=== PATIENT | male | born 1975 | race African-American/Black ===

== ENCOUNTER 2023-03-28 15:56 | Emergency (ER) | payer BC ==
[~2023-03-28] VITALS: Ht 182.9 cm; Wt 98.0 kg
[2023-03-28] MEDS ORDERED: ONDANSETRON HCL 4MG/2ML INJ IV STA (16:12)
[2023-03-28] MEDS ORDERED: MORPHINE SULFATE 4 MG/ML CPJ (NOT FOR IM USE) IV STA (16:12)
[2023-03-28] MEDS ORDERED: SODIUM CHLORIDE 0.9% 1,000 ML IV ONE (16:15)
[2023-03-28] MEDS ORDERED: ETOMIDATE 2MG/ML 10ML VIAL IV ONE (16:15)
[2023-03-28] MEDS ORDERED: MORPHINE SULFATE 4 MG/ML CPJ (NOT FOR IM USE) IV ONE (16:15)
[2023-03-28 16:38] LABS: BASOPHILS % 0.6 % (0.0-2.0); EOSINOPHILS % 2.1 % (0.0-5.0); HEMATOCRIT. 39.4 % (42.0-52.0); HEMOGLOBIN. 13.4 g/dL (14.0-18.0); LYMPHOCYTES % 40.9 % (20.0-50.0); MEAN CORPUSCULAR HEMOGLOBIN 33.7 pg (28.0-32.0); MEAN CORPUSCULAR HGB CONC 33.9 g/dL (31.0-37.0); MEAN CORPUSCULAR VOLUME 99.6 fL (80.0-94.0); MEAN PLATELET VOLUME 8.3 fl (7.4-10.4); MONOCYTES % 11.2 % (2.0-8.0); NEUTROPHILS % 45.2 % (40.0-76.0); PLATELET 260 x1000/uL (130-400); RED BLOOD CELL COUNT 3.96 mill/uL (4.7-6.1); RED CELL DISTRIBUTION WIDTH 12.3 % (11.6-14.6); WHITE BLOOD COUNT 5.7 x1000/uL (4.5-11.0)
[2023-03-28 16:53] LABS: CHLORIDE 105 mEq/L (98-107); INDEX HEMOLYSI 1 (1-3); INDEX ICTERIC 1 (1-4); INDEX LIPEMIC 1 (1-3); POTASSIUM 3.5 mEq/L (3.5-5.1); SODIUM 140 mEq/L (136-145)
[2023-03-28 17:00] LABS: CALCIUM 8.6 mg/dL (8.5-10.1); CARBON DIOXIDE 29 mEq/L (21-32); CREATININE 0.9 mg/dL (0.6-1.3); GLUCOSE 104 mg/dL (70-105); PROTEIN TOTAL 7.6 g/dL (6.0-8.3); UREA NITROGEN BLOOD 14 mg/dL (7-21)
[2023-03-28 17:01] LABS: ALANINE AMINOTRANSFERASE 51 IU/L (13-61); ASPARTATE AMINOTRANSFERASE 25 IU/L (15-37); BILIRUBIN TOTAL 0.5 mg/dL (0.1-1.0); ETHANOL BLOOD 83 mg/dL (<10)
[2023-03-28 17:17] LABS: PARTIAL THROMBOPLASTIN TIME 25.6 sec (23.4-31.0)
[2023-03-28 17:35] LABS: TROPONIN I HIGH SENSITIVITY 5 ng/L (<78)
[2023-03-28 17:42] VITALS: TEMP 98.7; O2SAT 99
[2023-03-28] MEDS ORDERED: MORPHINE SULFATE 4 MG/ML CPJ (NOT FOR IM USE) IV NR (19:30)
[2023-03-28] MEDS ORDERED: HYDR-4001 MT (20:25)
[2023-03-28] MEDS ORDERED: IBUP-2028 MT (20:25)
[2023-03-28 21:34] VITALS: BP 137/67; PULSE 88; RESP 16
== END 2023-03-28 21:45 | disposition home or self-care (01) ==
LOC: ER 15:56
DX: S93.05XA Dislocation of left ankle joint, initial encounter (principal); F10.129 Alcohol abuse with intoxication, unspecified; R41.82 Altered mental status, unspecified; Z79.899 Other long term (current) drug therapy; V29.99XA Rider (driver) (passenger) of other motorcycle injured in unspecified traffic accident, initial encounter; Y93.89 Activity, other specified; Y92.89 Other specified places as the place of occurrence of the external cause; Y99.8 Other external cause status; Y90.9 Presence of alcohol in blood, level not specified
CPT/HCPCS: 80053; 80320; 85025; 85610; 85730; 84484; 36415; 71045; 73590; 73610; 73620; 70450; 72125; 93005; 27840; 96361; 96374; 99152; 99285; J3490; J2405; J2270; J7030; Z7610 ×4; 25605; G0480